=== PATIENT | female | born 1980 | race Caucasian/White ===

== ENCOUNTER 2018-06-30 10:40 | Emergency (ER) | payer OTHER ==
[2018-06-30 10:58] VITALS: BP 119/76
--- NOTE | 2018-06-30 11:04 | UC ---
Upper Extremity HPI - HPI Summary HPI Summary: A 37 y/o F presents to [facility] with c/o R shoulder pain onset last night. Pt states she climbed a fence and she jumped off, but didnt let go in time, so she was still holding onto the fence. She felt something tear. Aggravating factors: movement, ADL. Associated sx: Decreased ROM of RUE. PMHx: broken LUE. Took Tylenol [employer]. - History of Current Complaint Chief Complaint: UCUpperExtremity Stated Complaint: SHOULDER INJURY Time Seen by Provider: 06/30/18 10:49 Hx Obtained From: Patient Hx Last Menstrual Period: 05/25/18 Onset/Duration: Sudden Onset, Lasting Hours - last night, Still Present Severity Initially: Moderate Severity Currently: Moderate Pain Intensity: 7 Pain Scale Used: 0-10 Numeric Location Of Pain: Is Discrete @ - R shoulder Aggravating Factor(s): Other - ADL Associated Signs And Symptoms: Negative: Fever - Allergies/Home Medications Allergies/Adverse Reactions: Allergies Allergy/AdvReac Type Severity Reaction Status Date / Time latex Allergy Rash Verified 06/30/18 10:55 Home Medications: Home Medications Ibuprofen TAB* [Advil TAB*] 400 mg PO Q6H PRN 06/30/18 [History Confirmed ] Norgestimate-Eth Estradiol(NF) [Ortho Tri-Cyclen (NF)] 1 tab PO DAILY 06/30/18 [ History Confirmed 06/30/18] PMH/Surg Hx/FS Hx/Imm Hx Previously Healthy: Yes Other Endocrine History: neg: DM Other Cardiovascular History: neg:HTN Other Respiratory History: neg: COPD - Surgical History Surgical History: Yes Surgery Procedure, Year, and Place: right knee arthoscopic surgery to remove a threaded sewing needle that had broken into 3 pieces. . L shoulder - Family History Known Family History: Positive: Diabetes - grandparents Negative: Cardiac Disease, Hypertension - Social History Occupation: Employed Full-time Lives: Alone Alcohol Use: Occasionally Substance Use Type: None Smoking Status (MU): Never Smoked Tobacco Review of Systems Constitutional: Negative - fever Musculoskeletal: Decreased ROM - RUE, Other: - R shoulder pain All Other Systems Reviewed And Are Negative: Yes Physical Exam - Summary Physical Exam Summary: VITAL SIGNS: Reviewed. GENERAL: Patient is a well-developed and nourished FEMALE who is lying comfortable in the stretcher. Patient is not in any acute respiratory distress. HEAD AND FACE: Normocephalic EYES: PERRLA, EOMI x 2. EARS: Hearing grossly intact. MOUTH: Oropharynx within normal limits. NECK: Supple, trachea is midline, no adenopathy, no JVD, no carotid bruit. CHEST: Symmetric, no tenderness at palpation LUNGS: Clear to auscultation bilaterally. No wheezing or crackles. CVS: Regular rate and rhythm, S1 and S2 present, no murmurs or gallops appreciated. ABDOMEN: Soft, non-tender. Bowel sounds are normal. No abdominal abnormal pulsations. EXTREMITIES: Decreased ROM in R shoulder; abduction only to 45 degrees. No deformity, no ecchymosis, no hematomas. Neurovascular intact. NEURO: Alert and oriented x 3. No acute neurological deficits. Speech is normal and follows commands. SKIN: Dry and warm Triage Information Reviewed: Yes Vital Signs: Initial Vital Signs Temp 98.4 F 06/30/18 10:47 Pulse 92 06/30/18 10:47 Resp 16 06/30/18 10:47 BP 119/76 06/30/18 10:47 Pulse Ox 98 06/30/18 10:47 Vital Signs Reviewed: Yes Upper Extremity Course/Dx - Course Course Of Treatment: This patient is a 29-year-old female who presents to the urgent care with a chief complaint of right shoulder pain. Physical exam reveals that the patient has full range of motion however is painful. Therefore I do not believe that the patient has a bony injury or fracture. Probably she has a rotator cuff injury. Patient was placed in a shoulder sling recommends ibuprofen or Tylenol for the pain. The patient will be discharged home with a referral for orthopedics. She is hemodynamically stable alert and oriented 3. - Differential Dx/Diagnosis Provider Diagnoses: Rotator cuff injury Discharge - Sign-Out/Discharge Documenting (check all that apply): Patient Departure - DC All imaging exams completed and their final reports reviewed: No Studies - Discharge Plan Condition: Stable Disposition: HOME Patient Education Materials: Rotator Cuff Injury (ED) Referrals: Alberto Hull MD [Medical Doctor] - Tonya Giron MD [Primary Care Provider] - Additional Instructions: Take medications as instructed and adhere to planTake Acetaminophen or ibuprofen for pain or fever Increase your fluid intake Return to the or go to the emergency department if symptoms worsen Follow-up with primary care physician in next 2-3 days - Billing Disposition and Condition Condition: STABLE Disposition: Home - Attestation Statements Document Initiated by Carlota: Yes Documenting Scribe: Ketty Ruffin Provider For Whom Minhibe is Documenting (Include Credential): Eddie Saldana MD Scribe Attestation: IKetty, scribed for Eddie Saldana MD on 06/30/18 at 1136. Scribe Documentation Reviewed: Yes Provider Attestation: The documentation as recorded by the Ketty colbert accurately reflects the service I personally performed and the decisions made by me, Eddie Saldana MD
== END 2018-06-30 11:12 | disposition home or self-care (01) ==
LOC: UCEAST 10:40
DX: S46.001A Unspecified injury of muscle(s) and tendon(s) of the rotator cuff of right shoulder, initial encounter (principal); Z91.040 Latex allergy status; X58.XXXA Exposure to other specified factors, initial encounter; Y93.39 Activity, other involving climbing, rappelling and jumping off; Y92.9 Unspecified place or not applicable
CPT/HCPCS: 99212; G0463

== ENCOUNTER → 2019-08-03 07:36 | Day surgery (SDC) | payer OTHER ==
[~2019-08-03 07:36] MED LIST: Acetaminophen IV 1GM/100ML * 0 ML ONE; Acetaminophen TAB* 325 MG ONE; Acetaminophen TAB* 325 MG PO PRN; Buffered Lidocaine 1% SYRIN* 1 ML/SYRINGE INTRADERM ONE; Dexamethasone IV* 4 MG/ML 1 ML (4 MG) ONE; DiMENhydriNATE IV* 50 MG/ML VIAL IV PUSH PRN; Ketorolac INJ* 30 MG/ML 1 ML VIAL ONE; Lactated Ringers 1000 ML Bag* 1,000 ML IV SCH; Lidocaine 1% w EPI 1:200,000* SDV 30 ML VIAL ONE; Lidocaine 2% PF * 5 ML VIAL ONE; Metoclopramide IV* 5 MG/ML 2 ML VIAL ONE; Midazolam* 1 MG/ML 2 ML VIAL (2 MG) ONE; Naloxone* 0.4 MG/ML 1 ML VIAL IV PRN; Ondansetron INJ* 2 MG/ML VIAL ONE; Propofol* 10 MG/ML 20 ML BTL ONE; Ropivacaine 0.2% * 2 MG/ML VIAL ONE; ceFAZolin 2 GM PREMIX in ORs 2 GM/50 ML BAG ONE; fentaNYL* 50 MCG/ML 2 ML VIAL (100 MCG VIAL) ONE; oxyCODONE TAB* 5 MG TAB ONE; oxyCODONE TAB* 5 MG TAB PO PRN
[2019-08-03] MEDS: fentaNYL* 50 MCG/ML 2 ML VIAL (100 MCG VIAL) IV PRN ×2 (12:08→12:30)
[2019-08-03 13:02] VITALS: BP 107/67
--- NOTE | 2019-08-04 21:57 | OP ---
DATE OF OPERATION: 08/03/19 - [facility] DATE OF : 78 SURGEON: Matthew Acharya MD. DECAL DECORATOR: None available. PRE-OP DIAGNOSIS: Left knee medial meniscus tear. POST-OP DIAGNOSES: Left knee medial meniscus tear with parameniscal cyst. OPERATIVE PROCEDURE: Left knee arthroscopy with partial medial meniscectomy and synovectomy. COMPLICATIONS: None. ESTIMATED BLOOD LOSS: Minimal. INDICATIONS: Nandini Todd is a 38-year-old female with persistent knee pain after an injury that happened years ago, but then it progressively got worse again on 06/17/19. She had catching and locking pain. She had a medial meniscus tear on MRI with a parameniscal cyst. She has failed conservative management and elected to proceed with surgical treatment. The risks and benefits were discussed at length, included but not limited to bleeding, infection, damage to nerves; vessels; surrounding structures, wound nonhealing, persistent pain, need for surgery, scarring, stiffness, incomplete relief of symptoms, and risks of anesthesia. DESCRIPTION OF PROCEDURE: The patient was greeted in the preoperative area by the attending surgeon. Correct extremity was marked. Consent was confirmed. The patient was brought back to the operating table. She was placed in the supine position on the operating room table and underwent general anesthesia with LMA intubation, after which she was appropriately positioned with the lateral post and an unsterile tourniquet was placed high on the proximal thigh. The left leg was then prepped and draped in the usual sterile fashion beginning with chlorhexidine soap, scrub, and alcohol wipe and a final prep with ChloraPrep. After appropriate surgical pause indicating site, side, procedure, and administration of antibiotics, the knee was intra-articularly injected with 1% lidocaine with epi. The anterolateral portal was made with an 11-blade. The scope was positioned into the joint. There was abundant synovitis that was present. It was debrided back using a shaver to the anteroposterior portal. There was evidence of a medial meniscus tear with a small amount of chondrosis, grade 0 to 1 changes. The unstable flaps of the meniscus was debrided back using the shaver and biters. The meniscus cyst was then decompressed using an 18-gauge needle. A small amount of synovial fluid was then removed. There was evidence of the cyst being decompressed. The ACL and PCL were intact. The patellofemoral joint was visualized and found to have grade 1 changes. The trochlea had grade 0 changes. The lateral meniscus was intact. The lateral femoral condyle and plateau had grade 0 to 1 changes. The knee was then thoroughly lavaged and the wound was copiously irrigated. The portals were closed with 3-0 nylon and sterile dressing. The skin was then closed with 3-0 nylon. Sterile dressings were applied and a Cryo/Cuff was applied. She was awoken from anesthesia and transferred to PACU in stable condition. POSTOPERATIVE PLAN: She will be weightbearing as tolerated with crutches for 3 to 5 days and discharged on pain medications. DVT prophylaxis was considered, but deferred due to no previous personal or family history. I will see the patient back in 10 to 14 days. [id number]/CPS #: [id number] MTDD
== END | disposition home or self-care (01) ==
LOC: OR 07:36
PROVIDERS: ATTEND Orthopaedic Surgery
DX: S83.242A Other tear of medial meniscus, current injury, left knee, initial encounter (principal); X58.XXXA Exposure to other specified factors, initial encounter; Y93.9 Activity, unspecified; J45.909 Unspecified asthma, uncomplicated; M19.90 Unspecified osteoarthritis, unspecified site
CPT/HCPCS: 81025; A9270-GY; J0690; J1100; J1885; J2001; J2250; J2405; J2704; J2765; J2795; J3010

== ENCOUNTER 2020-01-02 17:22 | Emergency (ER) | payer OTHER ==
[2020-01-02 17:53] VITALS: BP 134/81
--- NOTE | 2020-01-02 18:36 | UC ---
Skin Complaint HPI - HPI Summary HPI Summary: 39 year old female with no PMH presents after cat scratch to L foot on . Since has noted increased pain, rash extending up left schwarz, feeling fatigue/ muscle/ joint aches. no fever, no abdominal pains. no prior illnesses - History of Current Complaint Chief Complaint: UCSkin Time Seen by Provider: 01/02/20 18:23 Stated Complaint: RASH Hx Obtained From: Patient Hx Last Menstrual Period: 3 weeks ago ?: No Onset/Duration: Sudden Onset Onset Severity: Moderate Current Severity: Moderate Pain Intensity: 4 Pain Scale Used: 0-10 Numeric Location: Discrete - left foot, schwarz Character: Pain, Redness, Raised Aggravating Factor(s): Nothing Alleviating Factor(s): Nothing - Allergy/Home Medications Allergies/Adverse Reactions: Allergies Allergy/AdvReac Type Severity Reaction Status Date / Time latex AdvReac Rash Verified 01/02/20 17:53 Home Medications: Home Medications Ibuprofen TAB* [Advil TAB*] 400 mg PO Q6H PRN 06/30/18 [History Confirmed ] Azithromyxin JANICE (NF) [Z-Janice (Zithromax) 250 mg tabs #6] 2 tab PO .TODAY, THEN 1 DAILY #6 tab 01/02/20 [Rx] Fluconazole 150 MG TAB* [Diflucan 150 MG TAB*] 150 mg PO ONCE #1 tablet [Rx] PMH/Surg Hx/FS Hx/Imm Hx Previously Healthy: Yes - Surgical History Surgical History: Yes Surgery Procedure, Year, and Place: right knee arthoscopic surgery to remove a threaded sewing needle that had broken into 3 pieces. . L shoulder 2011 - Family History Known Family History: Positive: Diabetes - grandparents Negative: Cardiac Disease, Hypertension - Social History Occupation: Employed Full-time Alcohol Use: Occasionally Substance Use Type: None Smoking Status (MU): Never Smoked Tobacco Review of Systems All Other Systems Reviewed And Are Negative: Yes Constitutional: Positive: Negative Skin: Positive: Rash Cardiovascular: Positive: Negative Gastrointestinal: Positive: Negative Psychological: Positive: Negative Is Patient Immunocompromised?: No Physical Exam Triage Information Reviewed: Yes Appearance: Well-Appearing, No Pain Distress, Well-Nourished Vital Signs: Initial Vital Signs Temp 99.0 F 01/02/20 17:49 Pulse 65 01/02/20 17:49 Resp 12 01/02/20 17:49 BP 134/81 01/02/20 17:49 Pulse Ox 100 01/02/20 17:49 Vital Signs Reviewed: Yes Eyes: Positive: Conjunctiva Clear ENT: Positive: Hearing grossly normal Musculoskeletal Exam: Normal Musculoskeletal: Positive: Strength Intact, ROM Intact - ankle, knee L Neurological Exam: Normal Neurological: Positive: Alert, Muscle Tone Normal Psychological Exam: Normal Psychological: Positive: Normal Response To Family Skin: Positive: Other - mild erythematous rash over left schwarz extending laterally, follicular pattern, + blanching, non-tender. no LAD palpable. PT 2 + L. Full L DF/PF ankle without pain, full PROM ankle, knee without pain. 3 scratches over base of 1st MCP without surrounding erythema Course/Dx - Course Course Of Treatment: - ANtibitoics as directed - GO to ER with fever, increased pain, abdominal pains - Increase fluid intake - Motrin/ tylenol as needed for pain - DIflucan if needed for yeast infection after antibiotics completed. - Differential Diagnoses - Skin Complaint Differential Diagnoses: Contact Dermatitis, Viral Exanthem - Diagnoses Provider Diagnosis: Cellulitis Discharge ED - Sign-Out/Discharge Documenting (check all that apply): Patient Departure All imaging exams completed and their final reports reviewed: No Studies - Discharge Plan Condition: Good Disposition: HOME Prescriptions: Azithromyxin JANICE (NF) [Z-Janice (Zithromax) 250 mg tabs #6] 2 tab PO .TODAY, THEN 1 DAILY #6 tab Fluconazole 150 MG TAB* [Diflucan 150 MG TAB*] 150 mg PO ONCE #1 tablet Patient Education Materials: Cat Scratch Disease (ED) Referrals: Tonya Giron MD [Primary Care Provider] - Additional Instructions: - ANtibitoics as directed - GO to ER with fever, increased pain, abdominal pains - Increase fluid intake - Motrin/ tylenol as needed for pain - DIflucan if needed for yeast infection after antibiotics completed. - Billing Disposition and Condition Condition: GOOD Disposition: Home
== END 2020-01-02 18:47 | disposition home or self-care (01) ==
LOC: UCEAST 17:22
DX: L03.116 Cellulitis of left lower limb (principal); S90.812A Abrasion, left foot, initial encounter; W55.03XA Scratched by cat, initial encounter; Y92.9 Unspecified place or not applicable; Z91.040 Latex allergy status
CPT/HCPCS: 99212; G0463